=== PATIENT | male | born 1965 | race Caucasian/White ===

== ENCOUNTER 2019-05-16 20:12 | Emergency (ER) | payer MEDICAID, OTHER ==
[2019-05-16 20:26] VITALS: BP 148/98
[2019-05-16] MEDS ORDERED: Diphtheria,Pertussis(Acell),Tetanus Vaccine 0.5 ML Syringe IM ONE (20:33)
--- NOTE | 2019-05-16 20:38 | EDM.PDOC ---
ED HPI GENERAL MEDICAL PROBLEM - General Chief Complaint: Upper Extremity Injury/Pain Stated Complaint: L ARM INJURY Time Seen by Provider: 05/16/19 20:23 Source of Information: Reports: Patient, RN Notes Reviewed History Limitations: Reports: Intoxication - History of Present Illness INITIAL COMMENTS - FREE TEXT/NARRATIVE: Patient is a 54-year-old male who presents to the ED for the evaluation of a left wrist injury. The patient states that he was working on his lawnmower when his left wrist and lower forearm got stuck into the blade. The lawnmower motor was not on the blade was not spinning, he was working on this with a power drill, the power drills spun the blade in the blade hit his left arm/ wrist. He states that the blade rotated twice daily and ended up hitting his wrist both times. This is on the posterior portion of his left wrist. The entire left wrist is red, swollen, with 2 small abrasions noted. The patient notes that he has broken this wrist in the past. He notes he is right-hand dominant. He does not think he is up-to-date on his tetanus booster. He states that his pain is a 5 out of 10 today and does not radiate up his arm at all. Left Wrist Pain Score (Numeric/FACES): 5 - Related Data Allergies Allergy/AdvReac Type Severity Reaction Status Date / Time bees Allergy Airway Uncoded 05/16/19 20:27 Tightness Home Meds: Home Meds EPINEPHrine [Epipen] 0.3 mg IM ONETIME PRN #1 pack 09/09/16 [Rx] Sertraline [Zoloft] 100 mg PO DAILY 05/16/19 [History] Past Medical History - Past Health History Medical/Surgical History: Denies Medical/Surgical History Social & Family History - Caffeine Use Caffeine Use: Reports: None Review of Systems - Review of Systems Review Of Systems: See Below Constitutional: Reports: No Symptoms Eyes: Reports: No Symptoms Ears: Reports: No Symptoms Nose: Reports: No Symptoms Mouth/Throat: Reports: No Symptoms Respiratory: Reports: No Symptoms Cardiovascular: Reports: No Symptoms GI/Abdominal: Reports: No Symptoms Genitourinary: Reports: No Symptoms Musculoskeletal: Reports: Arm Pain (Left lower forearm/wrist) Skin: Reports: Wound (2- 1 cm abrasions to posterior Left wrist) Neurological: Reports: No Symptoms Psychiatric: Reports: No Symptoms ED EXAM, GENERAL - Physical Exam Exam: See Below Exam Limited By: No Limitations General Appearance: Alert, WD/WN, No Apparent Distress Respiratory/Chest: No Respiratory Distress, Lungs Clear, Normal Breath Sounds, No Accessory Muscle Use, Chest Non-Tender Cardiovascular: Normal Peripheral Pulses, Regular Rate, Rhythm, No Murmur Peripheral Pulses: 3+: Radial (L), Radial (R) Extremities: Normal Range of Motion, Normal Capillary Refill, Joint Swelling ( Left posterior wrist) Neurological: Alert, Oriented, Normal Cognition, Normal Gait, No Motor/Sensory Deficits Psychiatric: Normal Affect, Normal Mood Skin Exam: Warm, Dry, Normal Color, No Rash, Wound/Incision ( 2- 1 cm abrasions to posterior wrist.) Course - Vital Signs Last Recorded V/S: Last Vital Signs Temp 97.2 F 05/16/19 20:23 Pulse 81 05/16/19 20:23 Resp 18 05/16/19 20:23 BP 148/98 H 05/16/19 20:23 Pulse Ox 99 05/16/19 20:23 - Orders/Labs/Meds Orders: Active Orders 24 hr Category Date Time Status Vaccines to be Administered [RC] PER UNIT ROUTINE Care 05/16/19 20:34 Active Wrist Comp Min 3V Lt [CR] Stat Exams 05/16/19 20:33 Taken DME for Discharge [COMM] Routine Oth 05/16/19 21:41 Ordered Meds: Medications Discontinued Medications Generic Name Dose Route Start Last Admin Trade Name Freq PRN Reason Stop Dose Admin Diphtheria/Tetanus/Acell Pertussis 0.5 ml 05/16/19 20:33 05/16/19 20:39 Adacel IM 05/16/19 20:34 0.5 ml .ONCE ONE Administration - Radiology Interpretation Free Text/Narrative:: V-rad does not find any acute bony fractures or abnormalities associated with injury - Re-Assessments/Exams Free Text/Narrative Re-Assessment/Exam: 05/16/19 20:38 Patient presents to the ED for evaluation of a left wrist injury. Have ordered a left wrist x-ray to be obtained to evaluate for further injury. Most likely this is a contusion of the left wrist, and will need to just be wrapped with an Alex wrap and treated with general conservative management. Departure - Departure Time of Disposition: 21:48 Disposition: Home, Self-Care 01 Condition: Fair Clinical Impression: Left wrist pain - Discharge Information *PRESCRIPTION DRUG MONITORING PROGRAM REVIEWED*: No *COPY OF PRESCRIPTION DRUG MONITORING REPORT IN PATIENT ALEXANDRA: No Instructions: Wrist Pain, Adult, [id number] Referrals: Liliana Montano MD [Primary Care Provider] - Forms: ED Department Discharge Additional Instructions: You have been evaluated in the ED for your Left wrist injury. Your x-ray demonstrated no acute bony fracture or abnormality. Please use ice as tolerated to the affected area. You may take tylenol 500 mg or ibuprofen 600mg q6 hrs for pain relief. Please do so until you have a tolerable level of pain with activity. Do not exceed 4000mg tylenol, Do not exceed 3200mg ibuprofen in a 24 hour time period Please return to ED if your symptoms should change or worsen. - My Orders Last 24 Hours: My Active Orders 05/16/19 20:33 Wrist Comp Min 3V Lt [CR] Stat 05/16/19 20:34 Vaccines to be Administered [RC] PER UNIT ROUTINE 05/16/19 21:41 DME for Discharge [COMM] Routine - Assessment/Plan Last 24 Hours: My Active Orders 05/16/19 20:33 Wrist Comp Min 3V Lt [CR] Stat 05/16/19 20:34 Vaccines to be Administered [RC] PER UNIT ROUTINE 05/16/19 21:41 DME for Discharge [COMM] Routine
--- NOTE | 2019-05-17 09:00 | CR ---
Left wrist: Four views of the left wrist were obtained. Comparison: No previous study. Joint space narrowing is noted off the distal navicular bone as well as between the distal radius and lunate and navicular bones. Slight lucency is noted within the lunate and navicular bone most likely due to degenerative cysts. Small calcification is noted off the ulnar styloid process likely dystrophic within the triangular fibrocartilage. Moderate degenerative change is noted within the CMC joint of the thumb. No acute fracture, dislocation or other bony abnormality is seen. Soft tissue swelling is noted. Impression: 1. Degenerative change as noted above. Soft tissue swelling. 2. Nothing acute is identified. Diagnostic code #2
== END 2019-05-16 22:11 | disposition home or self-care (01) ==
LOC: JD.ED 20:12
DX: M25.532 Pain in left wrist (principal); Z91.030 Bee allergy status; Z79.899 Other long term (current) drug therapy
CPT/HCPCS: 73110-26-LT; 73110-LT; 90700; 99282; 99283-25

== ENCOUNTER 2021-04-25 12:46 | Emergency (ER) | payer OTHER ==
[2021-04-25 13:06] VITALS: BP 153/97; PULSE 87
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
--- NOTE | 2021-04-25 14:09 | CT ---
Head CT Technique: Multiple axial sections through the brain were obtained. Intravenous contrast was not utilized. Reconstructed coronal and sagittal images were obtained. Comparison: No prior intracranial imaging is available. Findings: Ventricles along with basal cisterns and sulci over the convexities are within normal limits for the patient's age. No abnormal parenchymal densities are seen. No evidence of intracranial hemorrhage. No midline shift or mass-effect is appreciated. Bone window settings were reviewed. Mucosal thickening and possible small retention cyst within the right sphenoid sinus. Mild atherosclerotic change is seen within the carotid siphon. Visualized mastoid sinuses show nothing acute. No acute calvarial abnormality is appreciated. Impression: 1. Mild chronic appearing changes within the sphenoid sinus. 2. Nothing acute is otherwise seen on noncontrast head CT exam. Diagnostic code #2
== END 2021-04-25 14:24 | disposition home or self-care (01) ==
LOC: JD.ED 12:46
DX: S09.90XA Unspecified injury of head, initial encounter (principal); S70.12XA Contusion of left thigh, initial encounter; S80.12XA Contusion of left lower leg, initial encounter; I10 Essential (primary) hypertension; Z79.899 Other long term (current) drug therapy; Z91.030 Bee allergy status; W28.XXXA Contact with powered lawn mower, initial encounter
CPT/HCPCS: 70450; 70450-26; 99283; 99283-25

== ENCOUNTER 2021-07-31 17:30 | Emergency (ER) | payer OTHER ==
[2021-07-31 17:48] VITALS: BP 135/91; PULSE 82
--- NOTE | 2021-07-31 18:23 | EDM.PDOC ---
ED HPI GENERAL MEDICAL PROBLEM - General Chief Complaint: Allergic Reaction Stated Complaint: BEE STING ALLERGIC TO BEE'S Time Seen by Provider: 07/31/21 18:17 Source of Information: Reports: Patient History Limitations: Reports: No Limitations - History of Present Illness INITIAL COMMENTS - FREE TEXT/NARRATIVE: 56-year-old male presents to the ED after being stung he believes by a bee in the back of the vehicle when he put his arm down on the armrest. He believes he squished the be and thus likely did not receive much venom from the sting. The sting was in the extensor surface of his right mid forearm. He has seen in the ED 1 hour post staying and has no signs of any allergic reaction other than localized to the area which is only a centimeter in diameter with erythema. He did not develop any generalized erythema, itching or hives. No closure of his throat or no trouble breathing. On examination ear nose and throat exam is normal. Chest was clear to osseous percussion with no wheezing. There are no hives. Note the patient did bring along his epinephrine autoinjector but it is way out of date. When I look at it it is out of date in 2006. It was disposed of. Onset: Today, Sudden Onset Date: 07/31/21 Onset Time: 17:00 Duration: Minutes: Location: Reports: Upper Extremity, Right (Hymenoptera sting extensor surface mid right forearm) Quality: Reports: Ache, Burning Severity: Mild (Burning discomfort) Improves with: Reports: None Worsens with: Reports: None Context: Reports: Other (. Stung by a bee.). Denies: Activity, Lifting, Sick Contact, Trauma Associated Symptoms: Reports: Rash (Lysed erythema at the site of bee sting right extensor surface of forearm). Denies: Confusion, Chest Pain, Cough, cough w sputum, Diaphoresis, Fever/Chills, Headaches, Loss of Appetite, Malaise, Nausea/Vomiting, Seizure, Shortness of Breath, Syncope, Weakness Treatments BASIC SCIENCES PROFESSOR: Reports: Other (see below) Other Treatments BASIC SCIENCES PROFESSOR: none Right Arm Pain Score (Numeric/FACES): 1 - Related Data Allergies Allergy/AdvReac Type Severity Reaction Status Date / Time bees Allergy Severe Airway Uncoded 07/31/21 18:03 Tightness Home Meds: Home Meds EPINEPHrine [Epipen] 0.3 mg IM ONETIME PRN #1 pack 10/14/16 [Rx] Sertraline [Zoloft] 100 mg PO DAILY 05/16/19 [History] Losartan [Cozaar] 50 mg PO DAILY 04/25/21 [History] EPINEPHrine [Epipen 2-Kb] 0.3 mg IJ ASDIRECTED #2 auto.injct 07/31/21 [Rx] Past Medical History - Past Health History Medical/Surgical History: Denies Medical/Surgical History HEENT History: Reports: None Cardiovascular History: Reports: Hypertension Respiratory History: Reports: None Gastrointestinal History: Reports: GERD Genitourinary History: Reports: None Musculoskeletal History: Reports: Osteoporosis, Other (See Below) Other Musculoskeletal History: right hip pain Neurological History: Reports: Concussion, Headaches, Chronic Psychiatric History: Reports: Panic Attack, PTSD Endocrine/Metabolic History: Reports: None Hematologic History: Reports: None Immunologic History: Reports: None Oncologic (Cancer) History: Reports: None Dermatologic History: Reports: None - Infectious Disease History Infectious Disease History: Reports: Chicken Pox, Measles, Mumps - Past Surgical History HEENT Surgical History: Reports: Oral Surgery Musculoskeletal Surgical History: Reports: Other (See Below) Other Musculoskeletal Surgeries/Procedures:: L wrist fx Social & Family History - Family History Family Medical History: No Pertinent Family History - Tobacco Use Tobacco Use Status *Q: Never Tobacco User - Caffeine Use Caffeine Use: Reports: Coffee - Recreational Drug Use Recreational Drug Use: No - Living Situation & Occupation Living situation: Reports: Occupation: Employed ED ROS ALLERGIC REACTION - Review of Systems Review Of Systems: See Below Constitutional: Denies: Fever, Chills, Malaise, Weakness, Fatigue HEENT: Reports: No Symptoms Respiratory: Reports: No Symptoms. Denies: Shortness of Breath, Wheezing Cardiovascular: Reports: No Symptoms Endocrine: Reports: No Symptoms GI/Abdominal: Reports: No Symptoms : Reports: No Symptoms Musculoskeletal: Reports: Other (Chronic bilateral hip pain and needs both hips replaced) Skin: Reports: Erythema (Mild erythema approximately the size of a dime right mi d extensor surface of forearm at site of recent bee sting within the last hour) Neurological: Reports: No Symptoms Psychiatric: Reports: No Symptoms Hematologic/Lymphatic: Reports: No Symptoms ED EXAM GENERAL NO PERIP PULSE - Physical Exam Exam: See Below Exam Limited By: No Limitations General Appearance: Alert, WD/WN, No Apparent Distress, Other (Temperature is 37.2 degrees. Heart rate 82 and sinus respiratory is 14 with O2 sats of 96% room air BP 135/91) Eye Exam: Bilateral Eye: Normal Inspection (No blepharal pallor or scleral icterus), PERRL, Other (No edema of either upper or lower eyelids.) Throat/Mouth: Normal Inspection, Normal Lips, Normal Teeth, Normal Oropharynx, Other Head: Atraumatic (No swelling of the uvula or floor of the mouth.), Normocephalic Neck: Normal Inspection, Supple, Non-Tender, Full Range of Motion. No: Lymphadenopathy (L), Lymphadenopathy (R) Respiratory/Chest: No Respiratory Distress, Lungs Clear, Normal Breath Sounds, No Accessory Muscle Use. No: Wheezing Cardiovascular: Normal Peripheral Pulses, Regular Rate, Rhythm, No Edema, No Gallop, No Murmur, No Rub GI/Abdominal: Normal Bowel Sounds, Soft, Non-Tender, No Organomegaly, No Distention, Pelvis Stable Extremities: Other (Slight swelling and erythematous proximal to the size of a dime mid incision surface of right forearm at site of hymenoptera sting) Neurological: Alert, Oriented, CN II-XII Intact, Normal Cognition Psychiatric: Anxious Skin Exam: Warm, Dry (Mildly anxious but feels he is much better than he was after being stung.), Intact, Normal Color, No Rash Course - Vital Signs Last Recorded V/S: Last Vital Signs Temp 37.2 C 07/31/21 17:46 Pulse 82 07/31/21 17:46 Resp 14 07/31/21 17:46 BP 135/91 H 07/31/21 17:46 Pulse Ox 96 07/31/21 17:46 - Radiology Interpretation Free Text/Narrative:: 56-year-old male presents to the ER for evaluation of a bee sting to the extensor surface of his right mid forearm. He states this occurred when he put his arm down on the armrest in the backseat of a vehicle and crushed the Bee. Therefore it appears that he did not get and minimized with much of the venom. Reports he did have a previous severe reaction 20 years ago. He has seen 1 hour after being stung him and has no hives or itching of his skin and did not develop generalized erythema. No trouble swallowing or pressure in his throat and no trouble breathing or wheezing. He will use Motrin as needed for pain as needed. I did refill his autoinjector for epinephrine to be used in an extreme emergency as needed. At this time I do not think he needs anything other than Motrin for pain if needed. Departure - Departure Time of Disposition: 18:17 Disposition: Home, Self-Care 01 Condition: Fair Clinical Impression: Bee sting Qualifiers: Encounter type: initial encounter Injury intent: accidental or unintentional Qualified Code(s): T63.441A - Toxic effect of venom of bees, accidental (unintentional), initial encounter Bee sting reaction Qualifiers: Encounter type: initial encounter Injury intent: accidental or unintentional Qualified Code(s): T63.441A - Toxic effect of venom of bees, accidental (unintentional), initial encounter - Discharge Information *PRESCRIPTION DRUG MONITORING PROGRAM REVIEWED*: Not Applicable *COPY OF PRESCRIPTION DRUG MONITORING REPORT IN PATIENT ALEXANDRA: Not Applicable Prescriptions: EPINEPHrine [Epipen 2-Kb] 0.3 mg IJ ASDIRECTED #2 auto.injct Referrals: Liliana Montano CHIEF ENTERPRISE ARCHITECT [Primary Care Provider] - Forms: ED Department Discharge Additional Instructions: Evaluation in the emergency room today in regards to a wasp or bee sting to the right extensor surface of forearm. There is evidence of a local lysed reaction to hymenoptera sting but no systemic signs of illness such as trouble breathing or swelling of her throat or development of hives or generalized itching or sometimes just generalized redness everywhere. The bee may have not been able to inject you with much venom as it was crushed under the weight of your forearm and therefore you did not develop a serious reaction at this time. May use Motrin 600 mg if needed for irritation from the sting site. Usually the sting site woodard for about 24 hours and then is markedly improved. I did refill your EpiPen which contains two autoinjectors to be used in an emergency situation where you do develop a severe allergic symptoms with shortness of breath, with throat closure generalized itching or trouble breathing with wheezing Sepsis Event Note (ED) - Focused Exam Vital Signs: Vital Signs Temp Pulse Resp BP Pulse Ox 07/31/21 17:46 37.2 C 82 14 135/91 H 96
== END 2021-07-31 18:54 | disposition home or self-care (01) ==
LOC: JD.ED 17:30
DX: T63.441A Toxic effect of venom of bees, accidental (unintentional), initial encounter (principal); I10 Essential (primary) hypertension; Z91.030 Bee allergy status; Z79.899 Other long term (current) drug therapy
CPT/HCPCS: 99282; 99283

== ENCOUNTER 2021-10-01 20:25 | Emergency (ER) | payer OTHER ==
[2021-10-01 20:35] VITALS: PULSE 144
[2021-10-01] MEDS ORDERED: Sodium Chloride 0.9% 10 ML Syringe FLUSH PRN (20:42)
[2021-10-01] MEDS ORDERED: Diltiazem 50 MG/10 ML SDV IVPUSH ONE (20:55)
--- NOTE | 2021-10-01 21:11 | EDM.PDOC ---
ED HPI GENERAL MEDICAL PROBLEM - General Chief Complaint: Cardiovascular Problem Stated Complaint: chest pain Time Seen by Provider: 10/01/21 20:41 Source of Information: Reports: Patient, RN Notes Reviewed - History of Present Illness INITIAL COMMENTS - FREE TEXT/NARRATIVE: 56 yr old male had sudden onset of palpitations, chest discomfort at home about 90 minutes ago. Had been feeling fine prior to that. No hx of a fib. Hx of Htn. No prior cough, fever, chills, vomiting. Has cut back on his alcohol strongly this past week or so. Was getting "the shakes" really bad yesterday and today so has had some alcohol this evening. - Related Data Allergies Allergy/AdvReac Type Severity Reaction Status Date / Time bees Allergy Severe Airway Uncoded 10/01/21 20:35 Tightness Home Meds: Home Meds Sertraline [Zoloft] 100 mg PO DAILY 05/16/19 [History] Losartan [Cozaar] 50 mg PO DAILY 04/25/21 [History] EPINEPHrine [Epipen 2-Kb] 0.3 mg IJ ASDIRECTED #2 auto.injct 07/31/21 [Rx] Past Medical History - Past Health History Medical/Surgical History: Denies Medical/Surgical History HEENT History: Reports: None Cardiovascular History: Reports: Hypertension Respiratory History: Reports: None Gastrointestinal History: Reports: GERD Genitourinary History: Reports: None Musculoskeletal History: Reports: Osteoporosis, Other (See Below) Other Musculoskeletal History: right hip pain Neurological History: Reports: Concussion, Headaches, Chronic Psychiatric History: Reports: Panic Attack, PTSD Endocrine/Metabolic History: Reports: None Hematologic History: Reports: None Immunologic History: Reports: None Oncologic (Cancer) History: Reports: None Dermatologic History: Reports: None - Infectious Disease History Infectious Disease History: Reports: Chicken Pox, Measles, Mumps - Past Surgical History HEENT Surgical History: Reports: Oral Surgery Musculoskeletal Surgical History: Reports: Other (See Below) Other Musculoskeletal Surgeries/Procedures:: L wrist fx Social & Family History - Family History Family Medical History: No Pertinent Family History - Tobacco Use Tobacco Use Status *Q: Never Tobacco User Second Hand Smoke Exposure: No - Caffeine Use Caffeine Use: Reports: Coffee - Recreational Drug Use Recreational Drug Use: No - Living Situation & Occupation Living situation: Reports: Occupation: Employed ED ROS GENERAL - Review of Systems Review Of Systems: See Below Constitutional: Denies: Fever, Chills, Diaphoresis HEENT: Reports: No Symptoms Respiratory: Denies: Shortness of Breath, Pleuritic Chest Pain Cardiovascular: Denies: Chest Pain GI/Abdominal: Denies: Abdominal Pain, Nausea, Vomiting Musculoskeletal: Denies: Shoulder Pain, Arm Pain, Back Pain Skin: Reports: No Symptoms Neurological: Denies: Dizziness, Numbness, Tingling, Trouble Speaking, Difficulty Walking, Weakness ED EXAM, GENERAL - Physical Exam Exam: See Below General Appearance: Alert, Mild Distress Throat/Mouth: Normal Inspection Head: Atraumatic Neck: Supple Respiratory/Chest: No Respiratory Distress, Lungs Clear, Normal Breath Sounds Cardiovascular: Tachycardia, Irregularly Irregular GI/Abdominal: Soft, Non-Tender Back Exam: No: CVA Tenderness (L), CVA Tenderness (R) Extremities: Normal Inspection. No: Pedal Edema, Leg Pain, Increased Warmth, Redness Neurological: Alert, Oriented, No Motor/Sensory Deficits Skin Exam: Warm, Dry, Normal Color #1 Interpretation EKG Date: 10/01/21 Rhythm: A-Fib Rate (Beats/Min): 136 [place]: Normal P-Wave: Absent QRS: Other (q waves lead III) ST-T: Depressed (Mil St depression II and AVL, t wave inversion lead III.) Course - Vital Signs Last Recorded V/S: Last Vital Signs Temp 97 F 10/01/21 20:32 Pulse 144 H 10/01/21 20:32 Resp 16 10/01/21 20:32 BP 138/75 10/01/21 20:32 Pulse Ox 96 10/01/21 20:32 - Orders/Labs/Meds Orders: Active Orders 24 hr Category Date Time Status Peripheral IV Care [RC] . DIRECTED Care 10/01/21 20:44 Active Chest 1V Frontal [CR] Stat Exams 10/01/21 20:42 Taken Sodium Chloride 0.9% [Saline Flush] Med 10/01/21 20:42 Active 10 ml FLUSH ASDIRECTED PRN Peripheral IV Insertion Adult [OM.PC] Stat Oth 10/01/21 20:42 Ordered EKG 12 Lead [EK] Stat Ther 10/01/21 21:44 Ordered Medication Orders Sodium Chloride (Sodium Chloride 0.9% 10 Ml Syringe) 10 ml FLUSH ASDIRECTED PRN PRN Reason: Keep Vein Open Last Admin: 10/01/21 21:14 Dose: 10 ml Documented by: ABBEY Labs: Laboratory Tests 10/01/21 10/01/21 10/01/21 Range/Units 20:43 20:43 20:43 WBC 6.15 (4.23-9.07) K/mm3 RBC 4.16 L (4.63-6.08) M/mm3 Hgb 14.1 (13.7-17.5) gm/dl Hct 41.5 (40.1-51.0) % MCV 99.8 H (79.0-92.2) fl MCH 33.9 H (25.7-32.2) pg MCHC 34.0 (32.2-35.5) g/dl RDW Std Deviation 46.1 H (35.1-43.9) fL Plt Count 193 (163-337) K/mm3 MPV 9.0 L (9.4-12.3) fl Neut % (Auto) 37.4 (34.0-67.9) % Lymph % (Auto) 47.3 (21.8-53.1) % [place] % (Auto) 12.4 H (5.3-12.2) % Eos % (Auto) 2.4 (0.8-7.0) Baso % (Auto) 0.3 (0.1-1.2) % Neut # (Auto) 2.30 (1.78-5.38) K/mm3 Lymph # (Auto) 2.91 (1.32-3.57) K/mm3 [place] # (Auto) 0.76 (0.30-0.82) K/mm3 Eos # (Auto) 0.15 (0.04-0.54) K/mm3 Baso # (Auto) 0.02 (0.01-0.08) K/mm3 PT 9.4 L (9.7-12.0) SECONDS INR < 0.93 Sodium 140 (136-145) mEq/L Potassium 3.3 L (3.5-5.1) mEq/L Chloride 103 (98-107) mEq/L Carbon Dioxide 24 (21-32) mEq/L Anion Gap 16.3 H (5-15) BUN 14 (7-18) mg/dL Creatinine 0.9 (0.7-1.3) mg/dL Est Cr Clr Drug Dosing 88.67 mL/min Estimated GFR (MDRD) > 60 (>60) mL/min BUN/Creatinine Ratio 15.6 (14-18) Glucose 118 H (70-99) mg/dL Calcium 9.0 (8.5-10.1) mg/dL Total Bilirubin 0.6 (0.2-1.0) mg/dL AST 88 H (15-37) U/L ALT 82 H (16-63) U/L Alkaline Phosphatase 111 (46-116) U/L Troponin I < 0.017 (0.00-0.056) ng/mL Total Protein 7.0 (6.4-8.2) g/dl Albumin 3.2 L (3.4-5.0) g/dl Globulin 3.8 gm/dL Albumin/Globulin Ratio 0.8 L (1-2) Ethyl Alcohol (0.00) gm% SARS-CoV-2 RNA (TIKI) (NEGATIVE) 10/01/21 10/01/21 Range/Units 20:43 21:03 WBC (4.23-9.07) K/mm3 RBC (4.63-6.08) M/mm3 Hgb (13.7-17.5) gm/dl Hct (40.1-51.0) % MCV (79.0-92.2) fl MCH (25.7-32.2) pg MCHC (32.2-35.5) g/dl RDW Std Deviation (35.1-43.9) fL Plt Count (163-337) K/mm3 MPV (9.4-12.3) fl Neut % (Auto) (34.0-67.9) % Lymph % (Auto) (21.8-53.1) % [place] % (Auto) (5.3-12.2) % Eos % (Auto) (0.8-7.0) Baso % (Auto) (0.1-1.2) % Neut # (Auto) (1.78-5.38) K/mm3 Lymph # (Auto) (1.32-3.57) K/mm3 [place] # (Auto) (0.30-0.82) K/mm3 Eos # (Auto) (0.04-0.54) K/mm3 Baso # (Auto) (0.01-0.08) K/mm3 PT (9.7-12.0) SECONDS INR Sodium (136-145) mEq/L Potassium (3.5-5.1) mEq/L Chloride (98-107) mEq/L Carbon Dioxide (21-32) mEq/L Anion Gap (5-15) BUN (7-18) mg/dL Creatinine (0.7-1.3) mg/dL Est Cr Clr Drug Dosing mL/min Estimated GFR (MDRD) (>60) mL/min BUN/Creatinine Ratio (14-18) Glucose (70-99) mg/dL Calcium (8.5-10.1) mg/dL Total Bilirubin (0.2-1.0) mg/dL AST (15-37) U/L ALT (16-63) U/L Alkaline Phosphatase (46-116) U/L Troponin I (0.00-0.056) ng/mL Total Protein (6.4-8.2) g/dl Albumin (3.4-5.0) g/dl Globulin gm/dL Albumin/Globulin Ratio (1-2) Ethyl Alcohol 0.13 (0.00) gm% SARS-CoV-2 RNA (TIKI) Negative (NEGATIVE) Meds: Medications Generic Name Dose Route Start Last Admin Trade Name Frevalarie PRN Reason Stop Dose Admin Sodium Chloride 10 ml 10/01/21 20:42 10/01/21 21:14 Sodium Chloride 0.9% 10 Ml Syringe FLUSH 10 ml ASDIRECTED PRN Administration Keep Vein Open Discontinued Medications Generic Name Dose Route Start Last Admin Trade Name Alison PRN Reason Stop Dose Admin Diltiazem HCl 20 mg 10/01/21 20:55 10/01/21 21:06 Diltiazem 50 Mg/10 Ml Sdv IVPUSH 10/01/21 20:56 20 mg ONETIME ONE Administration Diltiazem HCl 60 mg 10/01/21 21:24 10/01/21 21:48 Diltiazem Ir 30 Mg Tab PO 10/01/21 21:25 60 mg ONETIME ONE Administration - Re-Assessments/Exams Free Text/Narrative Re-Assessment/Exam: 10/01/21 22:28 Pt's rate slowed after 20 mg IV diltiazem, did follow that with 60 mg oral. He converted to NSR a short time ago. Discharge instr. as documented. Departure - Departure Time of Disposition: 22:22 Disposition: Home, Self-Care 01 Condition: Fair Clinical Impression: Atrial fibrillation with RVR Instructions: Atrial Fibrillation Referrals: Liliana Montano, ANIMAL DOCTOR [Primary Care Provider] - Forms: ED Department Discharge Additional Instructions: Continue current meds. Avoid further alcohol. Ativan 1 mg 2 to 3 times daily as previously prescribed. You can cut that dosage to 0.5 mg 2 to 3 times a day after 2 to 3 days depending on how that is working for you. Drink plenty of water to maintain hydration. See Mary Kate Virk next week, call for appointment Monday. Return to ED as needed if symptoms worsening in any way. Sepsis Event Note (ED) - Evaluation Sepsis Screening Result: No Definite Risk - Focused Exam Vital Signs: Vital Signs Temp Pulse Resp BP Pulse Ox 10/01/21 20:32 97 F 144 H 16 138/75 96 - My Orders Last 24 Hours: My Active Orders 10/01/21 20:42 Chest 1V Frontal [CR] Stat Sodium Chloride 0.9% [Saline Flush] 10 ml FLUSH ASDIRECTED PRN Peripheral IV Insertion Adult [OM.PC] Stat 10/01/21 20:44 Peripheral IV Care [RC] . DIRECTED 10/01/21 21:44 EKG 12 Lead [EK] Stat - Assessment/Plan Last 24 Hours: My Active Orders 10/01/21 20:42 Chest 1V Frontal [CR] Stat Sodium Chloride 0.9% [Saline Flush] 10 ml FLUSH ASDIRECTED PRN Peripheral IV Insertion Adult [OM.PC] Stat 10/01/21 20:44 Peripheral IV Care [RC] . DIRECTED 10/01/21 21:44 EKG 12 Lead [EK] Stat
[2021-10-01] MEDS ORDERED: Diltiazem IR 30 MG Tab PO ONE (21:24)
[2021-10-01 23:19] VITALS: BP 122/75
--- NOTE | 2021-10-02 07:20 | CR ---
Chest: Portable supine view of the chest was obtained. Comparison: No prior chest imaging is available. Heart size and mediastinum are within normal limits. Lungs are clear with no acute parenchymal change. Bony structure shows nothing acute. Impression: 1. Nothing acute is seen on portable supine chest x-ray. Diagnostic code #1
== END 2021-10-01 23:01 | disposition home or self-care (01) ==
LOC: JD.ED 20:25
DX: I48.91 Unspecified atrial fibrillation (principal); I10 Essential (primary) hypertension; Z91.030 Bee allergy status; Z79.899 Other long term (current) drug therapy; Z20.822 Contact with and (suspected) exposure to COVID-19
CPT/HCPCS: 36415; 71045; 80053; 80307; 84484; 85025; 85610; 87635; 93005; 96374; 99285; A9270; J3490; U0002

== ENCOUNTER 2023-01-17 03:13 | Inpatient (IN) | payer OTHER ==
[2023-01-17] MEDS ORDERED: Diltiazem 25 MG/5 ML SDV IVPUSH ONE ×2 (03:32→04:58)
[2023-01-17] MEDS ORDERED: Diltiazem 25 MG/5 ML SDV ONE (03:38)
[2023-01-17] MEDS: Sodium Chloride 0.9% 1,000 ML IV SCH ×2 (03:41→09:09)
[2023-01-17] MEDS ORDERED: Potassium Chloride 10 MEQ in Premix Bag 1 BAG IV ONE ×2 (04:59→06:44)
[2023-01-17] MEDS ORDERED: Diltiazem 125 MG in Sodium Chloride 0.9% 100 ML IV SCH (05:15)
[2023-01-17] MEDS ORDERED: Potassium Chloride 20 MEQ Tab.ER PO ONE (07:58)
[2023-01-17] MEDS ORDERED: Magnesium Sulfate/Water 2 GM in Premix Bag 1 BAG IV ONE (07:58)
[2023-01-17] MEDS ORDERED: Acetaminophen 325 MG Tab PO PRN (08:28)
[2023-01-17] MEDS ORDERED: Ondansetron 4 MG/2 ML SDV IV PRN (08:28)
[2023-01-17] MEDS ORDERED: Metoprolol Tartrate 50 MG Tab PO SCH (09:00)
[2023-01-17] MEDS ORDERED: Thiamine 100 MG Tab PO SCH (09:30)
[2023-01-17] MEDS ORDERED: Pantoprazole 40 MG Tab.CR PO SCH (09:30)
[2023-01-17] MEDS ORDERED: Folic Acid 1 MG Tab PO SCH (09:30)
[2023-01-17] MEDS ORDERED: Apixaban 5 MG Tab PO SCH (10:30)
[2023-01-17] MEDS: Potassium Chloride 10 MEQ in Premix Bag 1 BAG IV SCH ×4 (10:51→14:03)
[2023-01-17] MEDS ORDERED: Sertraline 50 MG Tab PO SCH (12:30)
[2023-01-17 18:41] VITALS: BP 132/82
[2023-01-17 18:43] VITALS: PULSE 81
== END 2023-01-17 15:45 | disposition home or self-care (01) | DRG 310 ==
LOC: JD.ED 03:13 → JD.ICU 07:56
PROVIDERS: ADMIT Internal Medicine; ATTEND Internal Medicine
DX: I48.91 Unspecified atrial fibrillation (principal); E87.6 Hypokalemia; E83.42 Hypomagnesemia; F41.9 Anxiety disorder, unspecified; F43.10 Post-traumatic stress disorder, unspecified; R51.9 Headache, unspecified; G89.29 Other chronic pain; K21.9 Gastro-esophageal reflux disease without esophagitis; F10.90 Alcohol use, unspecified, uncomplicated; I10 Essential (primary) hypertension; M81.0 Age-related osteoporosis without current pathological fracture; M16.11 Unilateral primary osteoarthritis, right hip; Z91.030 Bee allergy status; Z79.899 Other long term (current) drug therapy
CPT/HCPCS: 36415; 71045; 71045-26; 80053; 83735; 84443; 84484; 85025; 85610; 85730; 93005; 93010; 93307; 96361; 96365; 96366; 96367; 96368; 96376; 99236; 99285; 99285-25; A9270-GY; J3475; J3480; J3490; J7030